=== PATIENT | female | born 1995 | race Caucasian/White ===

== ENCOUNTER 2024-05-19 22:32 | Emergency (ER) | payer BC, SELFPAY ==
[2024-05-19 22:35] VITALS: BP 114/77; PULSE 111; RESP 20; TEMP 36.4; O2SAT 97; BMI 24.9
--- NOTE | 2024-05-19 22:55 | ED.GENADULT ---
HPI - General Adult General Date Seen: 05/19/24 Chief complaint: Cough Stated complaint: Cough, difficulty breathing Time Seen by Provider: 05/19/24 22:38 History of Present Illness HPI narrative: 29-year-old female presenting to the ER today for cough and difficulty breathing. 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 She has been sick for the past 3 or 4 weeks. She started with a cold similar to her family members. They have all gotten better but she has had persistent cough. She started to get worse again last Monday. She was seen in the [facility] urgent care and put on a 7 day course of Augmentin and given a 5 day burst of prednisone. She got worse again later this week so went to the [facility] where she was given a dose of Decadron. She had a chest x-ray that was negative. She feels that perhaps for a day or so after receiving the Decadron she did feel slightly better. She has had worsening cough and just cannot stop coughing over the weekend. Cough is nonproductive. She is also having a little bit of shortness of breath and chest tightness. She used her daughter's albuterol rescue inhaler tonight because she could not stop coughing and it helped slightly but not very much so she came here to the ER. She is not having any fevers. No hemoptysis. No swelling in her legs. No abdominal pain. No vomiting. No diarrhea. No change in sense of smell. She did at home COVID test yesterday and it was negative. Per medical record she was seen in the urgent care 2 days ago 05/17 and had a cough going on for 3 or 4 weeks. She had already been seen in a different urgent care 2 days prior to that and had been on Augmentin and prednisone but not feeling any better. Chest x-ray in the urgent care was read by Radiology is normal. She is given an additional prescription for Tessalon to use for supportive care. She was seen in [facility] 05/15 per notes in [facility] carelink: 29 y.o. female who presents with concerns of cough, congestion, and body aches for the past 1 month. Cough is mostly dry and barky, is keeping her up at night. Also has had a sore throat for the past couple days. Is starting to feel pain/pressure in her sinuses; nasal secretions have become more thick and green. Symptoms were initially getting better, but have started to get worse over the past 2-3 days. Has been taking tylenol and ibuprofen, which help her head and throat pain. History of hallucinations from Mucinex DM, so she avoids OTC cough/cold medications. Family members have been sick with similar symptoms, but hers have not gone away. Was seen a couple weeks ago for these symptoms - COVID-19 and strep were negative. Denies fever, shortness of breath, wheezing. Was diagnosed with ?sinusitis? and put on Augmentin. Given prednisone for postviral cough syndrome. Related Data Home Medications ?Medication ?Instructions ?Recorded ?Confirmed prenat.vits,vicente,[id number] 1 tab PO QDAY 11/25/22 05/17/24 fluoxetine 40 mg capsule (Prozac) 80 mg PO QAM 04/08/24 05/19/24 prednisone 20 mg tablet 20 mg PO BID 05/17/24 05/19/24 Previous Rx's ?Medication ?Instructions ?Recorded benzonatate 100 mg capsule 100 mg PO BID-TID PRN cough #20 05/17/24 caps azithromycin 250 mg tablet See Rx Instructions PO .COMPLEX #6 05/20/24 tabs dexamethasone 4 mg tablet 4 mg PO DAILY #3 tabs 05/20/24 Allergies Allergy/AdvReac Type Severity Reaction Status Date / Time dexbrompheniramine Allergy Severe Verified 05/17/24 12:23 gluten Allergy Unknown Uncoded 05/17/24 12:23 [facility] Medical History (Updated 05/20/24 @ 00:03 by Negro Gatica MD) delivery delivered ?O82 - Encounter for delivery without indication (ICD-10) Celiac disease ?K90.0 - Celiac disease (ICD-10) Anxiety ?F41.9 - Anxiety disorder, unspecified (ICD-10) Conjunctivitis ?H10.9 - Unspecified conjunctivitis (ICD-10) Sinusitis ?J32.9 - Chronic sinusitis, unspecified (ICD-10) Cough ?R05.9 - Cough, unspecified (ICD-10) Surgical History (Updated 12/21/23 @ 09:18 by Magdalene Meehan ~ [employer]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, 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) Open left ankle fracture ?S82.892B - Other fracture of left lower leg, initial encounter for open fracture type I or II (ICD-10) History of thyroid surgery ?Z98.890 - Other specified postprocedural states (ICD-10) Family History (Updated 12/21/23 @ 09:19 by Magdalene Meehan ~ [facility], [facility]) Mother Osteoarthritis Skin cancer Social History Smoking Status: Never smoker How often do you have a drink containing alcohol: never AUDIT-C Alcohol total score: 0 Non-prescribed substance use: denies use Exam Narrative: Exam Narrative: Constitutional: Appears well-developed and well-nourished. Alert. Conversant. Non toxic. HENT: Head: Atraumatic. Nose: Nose normal. Mouth/Throat: Oral mucosa is clear and moist. no trismus. Pharynx normal. Tonsils symmetric. No tonsillar enlargement, erythema, or exudate. Eyes: Conjunctivae normal. EOM normal. Pupils equal, round, and reactive to light. No scleral icterus. Neck: Normal range of motion. Neck supple. No tracheal deviation present. No JVD Cardiovascular: Normal rate, regular rhythm. No gallop. No friction rub. No murmur heard. Symmetric radial artery pulses Pulmonary/Chest: Effort normal. No stridor. No respiratory distress. Very frequent, almost incessant dry, hacking cough. Worse when she tries to breathe in and out for lung exam. No wheezes. No rales. No rhonchi . No tenderness. Musculoskeletal: RUE: Normal range of motion. No tenderness. No deformity LUE: Normal range of motion. No tenderness. No deformity RLE: Normal range of motion. No edema. No tenderness. No deformity LLE: Normal range of motion. No edema. No tenderness. No deformity Lymph: No cervical adenopathy. Neurological: Alert and oriented to person, place, and time. Normal strength. CN II-VII intact. No sensory deficit. GCS eye subscore is 4. GCS verbal subscore is 5. GCS motor subscore is 6. Normal coordination Skin: Skin is warm and dry. No rash noted. No pallor. Normal capillary refill. Psychiatric: Normal mood. Normal affect. Const: Vital Signs, click to edit/add: Vital Signs - 24 hr 05/19/24 22:35 05/19/24 23:47 Temperature 97.6 F Pulse Rate [Pulse Oximeter] 111 H 89 Respiratory Rate 20 16 Blood Pressure [Ri ght Upper Arm] 114/77 Pulse Oximetry 97 98 Oxygen Delivery Me thod Room Air Room Air Course Course ED Course: Recheck-cough is improved but not resolved after nebulizer. Able to participate better in lung exam without as much coughing. Still occasional, dry cough. Vital Signs Vital signs: Initial Vital Signs Temperature 97.6 F 05/19/24 22:35 Temperature Source Temporal Artery Scan 05/19/24 22:35 Pulse Rate 111 H 05/19/24 22:35 Respiratory Rate 20 05/19/24 22:35 Blood Pressure 114/77 05/19/24 22:35 Blood Pressure Mean 89 05/19/24 22:35 Blood Pressure Position Sitting 05/19/24 22:35 Pulse Oximetry 97 05/19/24 22:35 Oxygen Delivery Method Room Air 05/19/24 22:35 Vital Signs Temperature 97.6 F 05/19/24 22:35 Pulse Rate 111 H 05/19/24 22:35 Respiratory Rate 20 05/19/24 22:35 Blood Pressure 114/77 05/19/24 22:35 Pulse Oximetry 97 05/19/24 22:35 Oxygen Delivery Method Room Air 05/19/24 22:35 Temperature 97.6 F 05/19/24 22:35 Pulse Rate 89 05/19/24 23:47 Respiratory Rate 16 05/19/24 23:47 Blood Pressure 114/77 05/19/24 22:35 Pulse Oximetry 98 05/19/24 23:47 Oxygen Delivery Method Room Air 05/19/24 23:47 Medications Administered Medications: Generic Name Dose Route Start Last Admin Trade Name Freq PRN Reason Stop Dose Admin Albuterol/Ipratropium 1 neb 05/19/24 23:37 05/19/24 23:39 Iprat-Albut 0.5-2.5 Mg/3 Ml Neb IH 05/19/24 23:38 1 neb ONCE ONE Administration Medical Decision Making MDM Narrative Medical decision making narrative: This patient presents for evaluation of cough that she cannot get to stop associated with some chest tightness and shortness of breath. She has been sick for the past several weeks with a cough. Her family came down with a viral illness at the same time she did and they have all improved. However she has been getting worse for the past week. She has already been in the urgent care 2 times and put on Augmentin and prednisone but is worsening. She already had chest x-ray that was negative and COVID test that was negative. 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 She did have a cough that was not responsive to [id number] cough medicine, prescription Tessalon at home. We did administer DuoNeb here in the ER with some improvement in the cough. Suggest this is probably a bronchospastic cough and probably viral induced wheezing or asthma. There is no signs at this point of serious bacterial infection such as OM, RPA, epiglottitis, INSTRUMENT TESTER, strep pharyngitis, pneumonia, sinusitis, meningitis, bacteremia, serious bacterial infection. We discussed possible repeat chest x-ray but using shared decision-making decided to hold off with overall clear lungs, no fever. She has already been on a 7 day course of Augmentin without improvement. Consider possible atypical pneumonia. Will put her on Azithromycin based on duration of symptoms. Also consider possible cardiac cause of shortness of breath. I did order an EKG, but the patient declined. Would hold off on other lab tests for now. No signs of peripheral edema suggest CHF or evolving myocarditis.. There are no gastrointestinal symptoms at this point and no signs of dehydration. Return to ED for worsening cough or shortness of breath, worsening chest tightness, dizziness or weakness, fever > 103, protracted vomiting, confusion, or other worsening. Otherwise, if stable but not worsening, followup with primary care physician is indicated. Prescriptions for [id number]. Decadron 4 mg daily for 3 more days [facility] prescription for albuterol nebulizers Discharge Plan Discharge Clinical Impression: Cough, Acute bronchospasm Patient Disposition: Home, Self-Care Condition: Stable Instructions: Bronchospasm (ED) Additional Instructions: As we discussed, please use the albuterol nebulizers every 4 hours if needed for cough or shortness of breath. Continue on the steroids-dexamethasone 10 mg day for 3 more days. Please switch to the new antibiotic-Azithromycin. If you have any worsening shortness of breath, chest pain, weakness, racing heart, or other worsening symptoms, please return to the ER right away to be rechecked. Prescriptions: New dexamethasone 4 mg tablet 4 mg PO DAILY Qty: 3 0RF azithromycin 250 mg tablet See Rx Instructions .ROUTE .COMPLEX Qty: 6 0RF Rx Instructions: For 250 mg dose pack: take 500 mg today (day 1), then 250 mg for 4 days (days 2-5) No Action prenat.vits,vicente,ebf-kist-usidi Tablet 1 tab PO QDAY fluoxetine [Prozac] 40 mg capsule 80 mg PO QAM prednisone 20 mg tablet 20 mg PO BID benzonatate 100 mg capsule 100 mg PO BID-TID PRN (Reason: cough) Qty: 20 0RF Follow Up/Referrals: Provider,Not a Local [Primary Care Provider] - Stand Alone Forms: [employer] Info Instructions
[2024-05-19] MEDS: IPRAT-ALBUT 0.5-2.5 MG/3 ML NEB 1 NEB IH (23:39)
[2024-05-19 23:47] VITALS: PULSE 89; RESP 16; O2SAT 98
== END 2024-05-20 00:11 | disposition home or self-care (01) ==
PROVIDERS: Emergency Provider Emergency Medicine
DX: R05.9 Cough, unspecified (principal); J98.01 Acute bronchospasm
CPT/HCPCS: 94640; 99283; 99284

== ENCOUNTER 2024-11-16 12:04 | Outpatient (CLI) | payer BC, SELFPAY | END 2024-11-16 12:05 | disposition home or self-care (01) | LOC: LKVREF 12:06 | PROVIDERS: Visit Provider Family Medicine | DX: Z32.00 Encounter for pregnancy test, result unknown (principal) | CPT/HCPCS: 84702 ==